=== PATIENT | female | born 1975 | race Caucasian/White ===

== ENCOUNTER 2021-04-18 20:20 | Emergency (ER) | payer MEDICAID ==
[~2021-04-18] VITALS: Ht 157.5 cm; Wt 70.0 kg
[2021-04-18 20:34] VITALS: BP 106/86
--- NOTE | 2021-04-18 21:13 | NUR ---
NO ANSWER FOR CT
--- NOTE | 2021-04-19 00:14 | NUR ---
PT LEFT AMA
== END 2021-04-19 00:17 | disposition left against medical advice (07) ==
LOC: ED 21:45
DX: S09.90XA Unspecified injury of head, initial encounter (principal); M54.2 Cervicalgia; M25.512 Pain in left shoulder; M25.511 Pain in right shoulder; R07.89 Other chest pain; V49.49XA Driver injured in collision with other motor vehicles in traffic accident, initial encounter; Y93.89 Activity, other specified; Y92.89 Other specified places as the place of occurrence of the external cause; Y99.8 Other external cause status
CPT/HCPCS: 70450; 71045; 72125; 99285

== ENCOUNTER 2021-04-19 16:56 | Emergency (ER) | payer MEDICAID ==
[~2021-04-19] VITALS: Ht 157.5 cm; Wt 70.9 kg
--- NOTE | 2021-04-19 17:33 | NUR ---
LYNN RN: CALLED NO ANSWER
--- NOTE | 2021-04-19 17:43 | NUR ---
LYNN RN: CALLED PT NO ANSWER
--- NOTE | 2021-04-19 17:52 | NUR ---
HYSTER DRIVER: CALLED PT NO ANSWER
[2021-04-19 17:53] VITALS: BP 151/90
--- NOTE | 2021-04-19 20:31 | NUR ---
PT SEEN BY ALEJO AND . F/U AND D/C INSTRUCTIONS WITH PRESCRIPTIONS GIVEN TO PT AND SHE V/U. PT AMBULATED TO DISCHARGE DESK.
== END 2021-04-19 20:33 | disposition home or self-care (01) ==
LOC: ED 20:27
DX: S16.1XXA Strain of muscle, fascia and tendon at neck level, initial encounter (principal); S39.012A Strain of muscle, fascia and tendon of lower back, initial encounter; V49.49XA Driver injured in collision with other motor vehicles in traffic accident, initial encounter; Y93.89 Activity, other specified; Y92.410 Unspecified street and highway as the place of occurrence of the external cause; Y99.8 Other external cause status
CPT/HCPCS: 99283